=== PATIENT | male | born 1975 | race Two or more races ===

== ENCOUNTER 2018-04-07 14:00 | Emergency (ER) | payer OTHER ==
[~2018-04-07] VITALS: Ht 172.7 cm; Wt 79.4 kg
[2018-04-07] MEDS ORDERED: NORVASC5 MG PO (14:17)
[2018-04-07] MEDS ORDERED: TOPROL XL25 MG PO (14:18)
[2018-04-07] MEDS ORDERED: AVAPRO75 MG PO (14:19)
== END 2018-04-07 20:57 | disposition home or self-care (01) ==
LOC: ER 14:00
DX: K29.60 Other gastritis without bleeding (principal); K58.8 Other irritable bowel syndrome